=== PATIENT | male | born 1975 | race Caucasian/White ===

== ENCOUNTER 2016-12-26 21:16 | Emergency (ER) | payer MEDICAID, OTHER ==
[~2016-12-26] VITALS: Ht 165.1 cm; Wt 60.5 kg
[2016-12-26 21:18] VITALS: Ht 165.1 cm; Wt 60.5 kg
[2016-12-26] MEDS ORDERED: AMOX1TAB10 PO (21:52)
[2016-12-26] MEDS ORDERED: OFLO5DRO7 LEFT EAR (21:52)
[2016-12-26] MEDS ORDERED: IBUP800T25 PO (21:53)
[2016-12-26] MEDS ORDERED: IBUPROFEN 800 MG TAB PO ONE (22:00)
--- NOTE | 2016-12-26 22:00 | ERD ---
ER Documentation Chief Complaint Date/Time DATE: 12/26/16 TIME: 21:54 Chief Complaint left ear pain with headache x 1 week HPI 40-year-old male complaining of left ear pain and headache 1 week. Patient reports pain and itching in the left ear, as well as feeling dizzy. Patient stated that he was swimming about 2 weeks ago. Denies fever or chills. Denies decreased hearing. Denies ear drainage. ROS All systems reviewed and are negative except as per history of present illness. Medications Home Meds Active Scripts Ibuprofen* (Motrin*) 800 Mg Tab, 800 MG PO Q8 Y for PAIN AND OR ELEVATED TEMP, # 30 TAB Prov:SOFI HAMMOND. SKINNING MACHINE FEEDER 12/26/16 Amoxicillin/Potassium Clav (Amox-Clav 875-125 mg Tablet) 875-125 mg Tab, 1 TAB PO BID for 7 Days, #14 TAB Prov:SOFI HAMMOND NP 12/26/16 Ofloxacin Otic (Ofloxacin Otic) 5 Ml Drops, 5 DROP LEFT EAR BID for 10 Days, #1 BOTTLE Prov:SOFI HAMMOND [employer]NING MACHINE [employer]EDER 12/26/16 Allergies Allergies: Coded Allergies: No Known Allergy (Unverified , 12/26/16) PMhx/Soc Medical and Surgical Hx: pt denies Medical Hx History of Surgery: No Anesthesia Reaction: No Hx Neurological Disorder: No Hx Respiratory Disorders: No Hx Cardiac Disorders: No Hx Psychiatric Problems: No Hx Miscellaneous Medical Probl: No Hx Alcohol Use: No Hx Substance Use: No Smoking Status: Never smoker Physical Exam Vitals Vital Signs Date Time Temp Pulse Resp B/P Pulse Ox O2 Delivery O2 Flow Rate FiO2 12/26/16 21:18 97.8 96 18 102/66 100 Physical Exam General: Well-developed, well-nourished, conscious and coherent, in no distress Skin: Warm and dry without rash, good texture and turgor Head: Normocephalic without evidence of trauma Eyes: Sclera and conjunctivae normal; pupils equal, round, and reactive to light; extraocular movements are intact Ears: Right canal patent, tympanic membrane clear. Left canal erythematous, swollen, and narrowing, with slight purulent exudate. Unable to visualize left tympanic membrane. Possible left tragal tenderness. Left mastoid tenderness. Nose/Face: Without rhinorrhea Mouth/throat: Mucous membranes are moist. Posterior pharynx clear without erythema or exudates Neck: Supple without meningismus or adenopathy. Carotids are equal. Trachea midline. No bruits or JVD Chest: Normal AP diameter. Good expansion without retractions. Nontender. Lungs are clear to auscultate bilaterally with good tidal volume Heart: Regular rate and rhythm. No murmur, rub, or gallops heard Extremities: Full range of motion. Good strength bilaterally. No clubbing, cyanosis, or edema. Peripheral pulses are intact. Sensation intact Neuro: Alert and oriented 4, GCS 15. Cranial nerves grossly intact. Motor and sensory exams nonfocal. Moves all extremities. Speech clear. Gait normal Results 24 hrs Current Medications Medications (Trade) Dose Ordered Sig/Soo Route PRN Reason Start Time Stop Time Status Last Admin Dose Admin Ibuprofen (Motrin) 800 mg ONCE ONCE PO 12/26/16 22:00 12/26/16 22:01 Procedures/MDM Well-appearing 40-year-old male present ED with left ear pain 1 week. Patient symptoms and exam findings consistent with acute otitis externa. Patient does have left mastoid tenderness, concern for mastoiditis. I doubt acute otitis media. Patient given ibuprofen in the ED for pain. Patient appears well, stable for discharge and outpatient management. Medical decision making shared with patient and family. Education provided to patient and family. Patient and family expressed understanding of the plan. Medications on discharge: Ofloxacin otic, Augmentin, ibuprofen. Follow-up: Primary care provider in 2-3 days or return to ED if worse. Disclaimer: Inadvertent spelling and grammatical errors are likely due to EHR/ dictation software use and do not reflect on the overall quality of patient care. Also, please note that the electronic time recorded on this note does not necessarily reflect the actual time of the patient encounter. Departure Diagnosis: Primary Impression: Otitis externa Otitis externa type: swimmer's ear Laterality: left Chronicity: acute Qualified Code: H60.332 - Acute swimmer's ear of left side Condition: Stable Patient Instructions: External Ear Infection (Adult) [facility] Usted se palafox hecho un examen mdico de control que le indica que no est en keo condicin que requiera tratamiento urgente en el Departamento de Emergencia. Un estudio ms profundo y el tratamiento de kiser condicin pueden esperar sin ningn riesgo hasta que usted sea atendida/o en el consultorio de kiser mdico o keo cl shana. Es responsabilidad suya arreglar keo seven para el seguimiento del anthony. MANEJO DE CONDICIONES NO URGENTES EN EL FUTURO 1) Si usted tiene un mdico de atencin primaria: Usted debera llamar a kiser mdico de atencin primaria antes de venir al departamento de emergencia. Despus de las horas de consultorio, kiser doctor o kiser asociado/a est disponible por telfono. El mdico o enfermero de eli en el servicio telefnico puede asesorarle por connie medio para atender el problema, o anthony contrario se puede programar keo seven. 2) Si usted no tiene un mdico de atencin primaria: Llame al mdico o clnica de referencia que aparece abajo sanjuana las horas de consultorio para hacer keo seven para que le vean. CLINICAS: [place] [id number] [phone] [facility] [phone] [facility]. [facility] [phone] [facility] [place] [id number] [phone] [facility] [place] [id number] [phone] [facility]. [phone] [address] Additional Instructions: Llame al doctor MAANA y bakari keo SEVEN PARA DENTRO DE 2-3 MATHEWS.Dgale a la secretaria que nosotros le instruimos hacer esta seven.Avise o llame si kiser condicin se empeora antes de la seven. Regresa aqui si peor o no mejor. SOFI HAMMOND. SKINNING MACHINE FEEDER Dec 26, 2016 22:00
== END 2016-12-26 22:30 | disposition home or self-care (01) ==
LOC: FTE 21:16
DX: H60.332 Swimmer's ear, left ear (principal); R40.2412 Glasgow coma scale score 13-15, at arrival to emergency department
CPT/HCPCS: Z7502; Z7610; 99283